=== PATIENT | male | born 1995 | race Two or more races ===

== ENCOUNTER 2016-12-11 18:21 | Emergency (ER) | payer OTHER ==
[~2016-12-11] VITALS: Ht 182.9 cm; Wt 63.5 kg
--- NOTE | 2016-12-11 18:41 | NUR ---
DR BRITO AT THE BEDSIDE FOR EVAL AND EXAM.
--- NOTE | 2016-12-11 18:54 | NUR ---
NON ADHESIVE DRESSING APPLIED PER .
[2016-12-11 18:58] VITALS: BP 113/60
[2016-12-11] MEDS ORDERED: SILVER SULFADIAZINE 1% CREAM 50 GM TP ONE (19:00)
--- NOTE | 2016-12-11 19:22 | NUR ---
Patient discharged to home in stable conditon. Written and verbal after care instructions given. Patient verbalizes understanding of instructions.
== END 2016-12-11 19:22 | disposition home or self-care (01) ==
LOC: ER 18:21
DX: T23.222A Burn of second degree of single left finger (nail) except thumb, initial encounter (principal); X10.2XXA Contact with fats and cooking oils, initial encounter; Y93.89 Activity, other specified; Y92.89 Other specified places as the place of occurrence of the external cause; Y99.8 Other external cause status
CPT/HCPCS: 16020; 99285; A4663